=== PATIENT | female | born 1980 | race Caucasian/White ===

== ENCOUNTER 2022-06-22 10:25 | Observation (INO) | payer OTHER, SELFPAY ==
[2022-06-14 15:30] VITALS: BMI 30.3
--- NOTE | 2022-06-14 15:34 | PC.NURSE ---
Report to the Outpatient Waiting Room, entrance under the green pavilion located off [facility], at time 0600 on date 06/22/22. Planned Procedure Time: 0730. Time changes happen often and if your time is changed the preop area will call you the afternoon before. - You and your visitor will be asked to self-screen and do not enter if you have any COVID symptoms. - Only one visitor is requested with a max of two and NO children visitors are allowed at this time. - The patient visitor may be requested to leave or wait in car when not with patient due to distancing restrictions. - A mask is optional within the hospital at this time. Patients may have clear liquids (water, carbonated beverages, clear teas, apple juice) until 3 hours prior to surgery with a maximum of 20 ounces. - No food from midnight until time of surgery Take the following medications with a SIP of water the morning of surgery: NONE DO NOT STOP ANY OF YOUR OTHER PRESCRIPTION MEDICATIONS PRIOR TO SURGERY EXCEPT THE FOLLOWING Medications to discontinue per physician: VITAMINS/SUPPLEMENTS Date to take last dose: 06/17/22 Please no make-up, nail azeri, hairspray, perfume, deodorant, or body powder the day of surgery. No jewelry (including any body piercings) or valuables the day of surgery, leave them at home. Please take a shower or bath the night before, or the morning of, surgery with an antibacterial soap. Wear comfortable, loose fitting clothing. - Jewelry must be removed prior to entering the operating room. Rings and piercings that are not removed may be cut off. - The hospital will not accept responsibility for valuables. - Please leave all valuables, including medications, at home the day of surgery. If you are going home after surgery, a licensed regional owner operator truck driver must drive you home. - NO public transportation without another adult if you receive anesthesia. - We recommend that an adult stay with you for 24 hours following discharge. - We also recommend that you do not drive, make important decision, drink alcoholic beverages, or take any drugs that were not prescribed by your health care provider for at least 24 hours after your discharge time. Follow any additional instructions given to you from your surgeon. If you or anyone in your household have experienced Covid symptoms in the past week, please notify your surgeon or the nurse liaison at the phone number below for possible testing. Telephone instructions given to PT - MARI GUPTA and asked if any additional questions and then verbalized understanding. Patient advised to call surgeon office or pre surgery nurse liaison [phone] if any additional questions.
--- NOTE | 2022-06-21 16:37 | PM.IMHP ---
H&P: HPI History of Present Illness Date/Time: 06/21/22 16:37 Chief Complaint: Menorrhagia Narrative: patient with a long history of menorrhagia which has been resistant to medical management. She has tried Lysteda and no relief. She declines progesterone IUD or progesterone hormonal options. She also has fibroids. She has opted for definitive treatment with hysterectomy and bilateral salpingectomy at the same time. She declines endometrial ablation. She has had an endometrial biopsy which was benign. Review of Systems Review of Systems: All systems reviewed & are unremarkable except as noted in HPI and below Constitutional: Constitutional: Reports no additional constitutional complaints Eyes: Eyes: Reports no additional eye complaints Cardiovascular: Cardiovascular: Reports no additional cardiovascular complaints Respiratory: Respiratory: Reports no additional respiratory complaints Gastrointestinal: Gastrointestinal: Reports no additional gastrointestinal complaints Genitourinary: Genitourinary: Reports no additional female genitourinary complaints and Reports as per HPI Integumentary/Breasts: Skin/Breast: Reports system reviewed and no additional complaints, except as docu Neurologic: Reports system reviewed and no additional complaints, except as documented Psychiatric: Psychiatric: Reports no additional psychiatric complaints Hematologic/Lymphatic: Hematologic/Lymphatic: Reports no additional hematologic/lymphatic complaints PMFSH Past Medical History Medical History Migraine Surgical History Surgical History Previous section x 3 Family History Family History Mother Hypertension Family history of elevated blood lipids Family history of diabetes mellitus in first degree relative Grandparent Hypertension Family history of malignant neoplasm of breast Family history of coronary artery disease, Onset Age: 74 Social History Social History Smoking status: Never smoker Second hand tobacco smoke exposure: No Alcohol intake: never Substance use: never Substance use type: does not use Lack of Transportation: No Lack of Food: Never True Current Housing: I Have Housing Concerned About Future Housing: No Difficulty Paying Gas/Electric Bills: No Difficulty Paying for Meds: No Currently Unemployed: No Education: Bachelor's Degree Difficulty w/ Childcare or Family Care: No Living arrangements: with family Spiritual care concerns: No Meds Home Medications and Allergies Home Medications Medication Instructions Recorded Confirmed Type ascorbic acid (vitamin C) 250 mg 250 mg PO DAILY 12/22/20 06/22/22 History tablet cholecalciferol (vitamin D3) 25 25 mcg PO DAILY 12/22/20 06/22/22 History mcg (1,000 unit) capsule magnesium 200 mg tablet 200 mg PO DAILY 12/22/20 06/22/22 History biotin 5 mg capsule 5 mg PO DAILY 01/20/22 06/22/22 History montelukast 10 mg tablet 10 mg PO DAILY 01/20/22 06/22/22 History (Singulair) omega 5-ywq-dvz-fish oil 1,000 mg 1 cap PO DAILY 01/20/22 06/22/22 History (120 mg-180 mg) capsule (Fish Oil) tumeric 100 mg-esther 150 mg-olive 1 cap PO DAILY 01/20/22 06/22/22 History 50 mg-oreg 150 mg-caprylate capsule vitamin B complex (B 1 tablet PO DAILY 01/20/22 06/22/22 History Complex-Vitamin B12 tablet) scopolamine base 1 mg over 3 days 1 patch transdermal Q3D PRN nausea 05/31/22 06/22/22 Rx transdermal patch prevention #1 ea phentermine 30 mg capsule 30 mg PO DAILY 06/14/22 06/22/22 History Allergies Allergy/AdvReac Type Severity Reaction Status Date / Time No Known Allergies Allergy Unknown Verified 06/22/22 06:55 Exam Const: General: comfortable and no acute distre
[2022-06-22] VITALS (14 sets, daily range): BP systolic 98–171; BP diastolic 65–117; PULSE 40–66; RESP 11–20; TEMP 36.1–36.7; O2SAT 96–100
--- NOTE | 2022-06-22 06:58 | WPDANESEPPF ---
Anes - Initial Pre Proc Eval Procedure: Operation Date: 06/22/22 07:30 Proposed Procedures p Robotic Total Hysterectomy with Bilateral Salpingectomy - Larry Ball MD Date/Time: 06/22/22 06:58 Surgeon: Larry Ball MD Pre Op Diagnosis: symptomatic fibroid uterus Patient Data Age: 41 Gender: F Height: 1.68 m Weight: 85.3 kg Allergies Allergy/AdvReac Type Severity Reaction Status Date / Time No Known Allergies Allergy Unknown Verified 06/22/22 06:55 Home Medications Medication Instructions Recorded Confirmed Type ascorbic acid (vitamin C) 250 mg 250 mg PO DAILY 12/22/20 06/14/22 History tablet cholecalciferol (vitamin D3) 25 25 mcg PO DAILY 12/22/20 06/14/22 History mcg (1,000 unit) capsule magnesium 200 mg tablet 200 mg PO DAILY 12/22/20 06/14/22 History biotin 5 mg capsule 5 mg PO DAILY 01/20/22 06/14/22 History montelukast 10 mg tablet 10 mg PO DAILY 01/20/22 06/14/22 History (Singulair) omega 7-lhk-yqe-fish oil 1,000 mg 1 cap PO DAILY 01/20/22 06/14/22 History (120 mg-180 mg) capsule (Fish Oil) tumeric 100 mg-esther 150 mg-olive 1 cap PO DAILY 01/20/22 06/14/22 History 50 mg-oreg 150 mg-caprylate capsule vitamin B complex (B 1 tablet PO DAILY 01/20/22 06/14/22 History Complex-Vitamin B12 tablet) scopolamine base 1 mg over 3 days 1 patch transdermal Q3D PRN nausea 05/31/22 06/14/22 Rx transdermal patch prevention #1 ea phentermine 30 mg capsule 30 mg PO DAILY 06/14/22 06/14/22 History Patient hx anesthesia problems: none Family hx anesthesia problems: none Results Review: All pre-operative results and documents have been reviewed as part of the pre-operative evaluation. [facility] Past Medical History Medical History Migraine Surgical History Surgical History Previous section x 3 Family History Family History Mother Hypertension Family history of elevated blood lipids Family history of diabetes mellitus in first degree relative Grandparent Hypertension Family history of malignant neoplasm of breast Family history of coronary artery disease, Onset Age: 74 Social History Social History Smoking status: Never smoker Second hand tobacco smoke exposure: No Alcohol intake: never Substance use: never Substance use type: does not use Lack of Transportation: No Lack of Food: Never True Current Housing: I Have Housing Concerned About Future Housing: No Difficulty Paying Gas/Electric Bills: No Difficulty Paying for Meds: No Currently Unemployed: No Education: Bachelor's Degree Difficulty w/ Childcare or Family Care: No Living arrangements: with family Spiritual care concerns: No Anes - Eval Final PreProcedure Day of Procedure 06/22/22 06:58 Patient weight: obese Heart: regular rate and rhythm Lungs: clear to auscultation Airway: Mallampati scale class II Neurological: alert and oriented Last oral intake: >/= 8 hours ASA classification: II Emergent: no Anesthetic plan: proceed Anesthesia type and monitoring: general ETT and standard monitoring Results Review: All pre-operative results and documents have been reviewed as part of the pre-operative evaluation. Informed Consent: The patient's anesthetic plan and its attendant risks and benefits were discussed with the patient/family/POA. Questions were solicited and answers provided to the satisfaction of the patient/family/POA.
[2022-06-22] MEDS: ACETAMINOPHEN 500 MG TABLET 1000 MG PO (07:01)
[2022-06-22] MEDS: LACTATED RINGERS 1,000 ML 30 ML IV CONT ×3 (07:05→11:36)
[2022-06-22] MEDS: KETOROLAC 15 MG/ML VIAL (*BKC) IV PUSH (07:10)
--- NOTE | 2022-06-22 07:13 | WPDHPUPDATE1 ---
History and Physical Update Update Date/Time: 06/22/22 07:13 History and Physical has been reviewed, including an updated exam of the patient. There are NO changes in the patient's condition. Risks, benefits, and alternatives have been discussed and questions answered. Patient agrees to proceed with procedure.
[2022-06-22] MEDS: ceFAZolin 2 GM/D5W 50 ML 2 GM/50 ML BAG IVPB (07:25)
[2022-06-22] MEDS: BUPivacaine HCL 0.5% PF 30 ML VIAL INFILTRATE (07:59)
--- NOTE | 2022-06-22 10:22 | PM.OP ---
Procedure Note - Brief Procedure Note - Brief Date of procedure: 06/22/22 symptomatic fibroid uterus Post-op diagnosis: Same Procedure performed: 1. Robotic assisted total vaginal hysterectomy with bilateral salpingectomy. 2. Lysis of adhesions 3. Left ovarian cystectomy Surgeon: Larry Ball MD Estimated blood loss (mL): 50 IV fluids (mL): 1,600 Urine output (mL): 150 Drains: No Packing: No Pathology: Yes (1. uterus with cervix and right and left fallopian tubes 2. Left ovarian cyst wall) Complications: No immediate complications Condition: Stable Disposition: PACU
[2022-06-22] MEDS: fentaNYL CITRATE INJ (*CRX) 100 MCG/2 ML VIAL 25 MCG IV PUSH ×8 (10:45→12:06)
--- NOTE | 2022-06-22 10:56 | W.PM.PROC2 ---
Procedure Note - Detailed Date of Procedure 06/22/22 Pre-op Diagnosis symptomatic fibroid uterus Post-op Diagnosis Same Procedure Performed 1. Robotic assisted total laparoscopic vaginal hysterectomy with bilateral salpingectomy 2. Lysis of adhesions 3. Left ovarian cystectomy Surgeon Larry Ball MD Anesthesia General Description of Procedure After informed consent was obtained she was taken to the operating room and general endotracheal anesthesia was administered. She was placed in low lithotomy position. An exam under anesthesia was performed. Uterus mildly enlarged retroverted, no adnexal masses palpated. She was and prepped and draped in sterile fashion. Gill catheter placed in bladder. Attention was turned to the vagina speculum was inserted. Single-tooth tenaculum placed on anterior lip of the cervix the uterus sounded to 11 cm. The cervix was dilated to a 8 Yan dilator. A size 10 uterine manipulator was inserted and secured. A size 3.0 colp cup was secured in the vagina. Then attention was turned to the abdomen with new sterile gloves. .25% marcaine injected subcutaneously. An incision was made horizontal 2 cm above the umbilicus. The subcutaneous tissue was dissected with S retractors. Anterior and posterior fascia grasped with Betty clamp and incised. Peritoneum entered. No adhesions palpated. The fascia sutures were secured with 0 vicryl. The robotic hysson port and camera inserted into abdomen and secured to fascial sutures. A Pneumoperitoneum of 15 mm per mercury was obtained. She had large amount of adhesions of the omentum to the anterior abdomen below the umbilicus and there was also noted to be a small hernia at this site. A small incision was made approximately 6 cm lateral to the port on the left side of the port. A size 8mm robotic port was inserted under laparoscopic visualization into the abdomen on the left side. 5 cm lateral to this an incision was made. Under laparoscopic visualization another 8 mm robotic port was inserted. Attention was then turned to the right side of the abdomen and a robotic port was inserted under laparoscopic visualization. Superior and medial to this an incision was made an assistant to the dean port was inserted under laparoscopic visualization. At this time the pneumoperitoneum was released due to her having a bradycardic episode which was resolved and once it was resolved then the pneumoperitoneum was continued at 50 mm per mercury. The Trendelenburg was decreased. The intestinal organs were retracted upwaqrdl at this level. The robot was then attached to the robotic arms. The robotic instruments were inserted. Attention was turned to the surgery console. Attention was turned to the adhesions of the omentum to the anterior abdominal wall. The scar tissue was ligated with the vessel sealer. Hemostasis noted. No other adhesions noted. Attention was turned to the right round ligament which was ligated with the vessel sealer the anterior leaf of the broad ligament was dissected anteriorly to the vesicouterine peritoneum. The right side of the bladder was dissected from the lower uterine segment and upper cervix. The right fallopian tube was ligated from the broad ligament. The right ovarian ligament was ligated with the vessel sealer. The a posterior leaf of the broad ligament was further dissected. The ascending uterine vessels on the right were cauterized. The uterine vessels were ligated. Attention was turned to the left round ligament which was ligated and the anterior leaf of the broad ligament was dissected anteriorly. The rest of the vesicouterine peritoneum and scar tissue was dissected off of the uterus to the level below where the colp cup was palpated. Once the bladder was dissected below the colp cup then the posterior leaf of the broad ligament was further dissected. The left fallopian tube was ligated from the broad ligament. The ascending uterine vessels were ligated.
[2022-06-22] MEDS: GLYCOPYRROLATE INJ (*SP) 0.2 MG/ML VIAL IV PUSH (11:28)
--- NOTE | 2022-06-22 12:35 | PC.NURSE ---
PT arrived on unit via bed accompanied by spouse and taken to room 289. PT awake and alert but dozing and oriented to room and surrounding area. PT introductions made and plan of care discussed per post op advanced registered nurse surgery, pain management, daily care activities. PT and spouse both recipients of such instructions and no barriers to learning identified at this time. PT received such instructions per one to one discussion and demonstrations. PT verbalized understanding of such care.
[2022-06-22] MEDS: DEXTROSE 5%/0.45% SOD CHL 1,000 ML 125 ML IV CONT (13:06)
[2022-06-22] MEDS: KETOROLAC 30 MG/ML VIAL (*BKC) IV PUSH ×2 (13:11→20:26)
[2022-06-22] MEDS: ONDANSETRON INJ 4 MG/2 ML VIAL IV PUSH ×2 (13:12)
[2022-06-22] MEDS: SCOPOLAMINE 1.5 MG PATCH 1 MG TRANSDERM (13:12)
[2022-06-22] MEDS: oxyCODONE HCL (*CRX) 5 MG TAB IR PO (18:04)
[2022-06-22] MEDS: SIMETHICONE 80 MG TAB.CHEW PO (18:05)
[2022-06-23 00:33] VITALS: BP 115/58; PULSE 81; RESP 16; TEMP 37.3; O2SAT 100
[2022-06-23] MEDS: KETOROLAC 30 MG/ML VIAL (*BKC) IV PUSH (02:53)
[2022-06-23 02:58] VITALS: BP 104/64; PULSE 54; RESP 16; TEMP 37.4; O2SAT 100
[2022-06-23] MEDS: SIMETHICONE 80 MG TAB.CHEW PO ×2 (06:50→09:18)
[2022-06-23] MEDS: HYDROcodone/acetaminophen (*CRX) 10-325 MG TABLET 1 TAB PO ×2 (06:50→10:33)
[2022-06-23] MEDS: MONTELUKAST SODIUM 10 MG TABLET PO (06:51)
[2022-06-23 08:15] VITALS: BP 135/74; PULSE 59; RESP 18; TEMP 36.9; O2SAT 100
[2022-06-23] MEDS: IBUPROFEN 600 MG TABLET PO (09:18)
--- NOTE | 2022-06-23 09:32 | WPDANESPN ---
Anes - Prog Note Post-Op Date/Time: 06/23/22 09:32 Cardiovascular status: normal Respiratory status: normal Airway patency: baseline Mental status: baseline Post-Op hydration status: normal Vital Signs: Last Vital Signs Temp 36.9 C 06/23/22 08:15 Pulse 59 L 06/23/22 08:15 Resp 18 06/23/22 08:15 BP 135/74 06/23/22 08:15 Pulse Ox 100 06/23/22 08:15 O2 Del Method Room Air 06/22/22 19:20 O2 Flow Rate 8 06/22/22 11:15 Pain Score (VAS): 2 I/O: Intake & Output 06/22/22 06/23/22 06/23/22 23:59 07:59 15:59 Intake Total 700 1000 Output Total 500 Balance 200 1000 Post-procedural complaints: none Patient Feedback: Patient satisfied with anesthetic care.
--- NOTE | 2022-07-20 07:19 | PM.DS ---
DS: Admitting Diagnosis Discharge Date 06/23/22 Admitting Diagnosis Menorrhagia symptomatic fibroid uterus DS: Discharge Diagnosis Discharge Diagnosis Plan same DS: Summary Hospital Course Reason for hospitalization: planned hysterectomy Hospital Course: She was admitted for laparoscopic robotic hysterectomy. She had an uncomplicated robotic hysterectomy with bilateral salpingectomy, lysis of adhesions and cystectomy. She did well post operatively. By POD 1 she was tolerating regular diet, ambulating well, and had adequate pain control. She was discharged to home on POD1. Status at Discharge Functional status at discharge: independent ambulation Time Spent with Patient Time attestation: Total time spent providing and/or coordinating discharge services: Exam Const: General: healthy appearing and no acute distress HENMT: Head: normocephalic Face/Nose/Sinus: Normal external nose present Eyes: General: appearance normal, both eyes and all related structures Resp: Effort & Inspection: normal respiratory effort GI: Inspection: normal to inspection Rectal Exam: other (incisions healing well) Skin: General skin exam: normal color Extrem: General: normal to inspection Psych: Appearance: grossly normal DS: Data Data Completed and Pending Completed studies during hospitalization: Pending at discharge 06/22/22 09:55 Surgical [PTH] Routine Surgical [PTH] Routine Discharge Plan Discharge Attending physician on discharge: Larry Ball Consulting providers: Christophe Aguilar; Lui Jennings Discharging Clinician: Larry Ball Anticipated Discharge Date/Time: 06/23/22 10:02 Patient Disposition: Home, Self-Care Activity: may shower, no straining, no driving and pelvic rest Diet: regular Discharge Instructions: Remove the Scopolamine patch that was placed behind your ear in 72 hours or less. Wash your hands after touching. Patient Instructions: Laparoscopic Hysterectomy (DC) Stand Alone Forms: General Discharge Instructions Follow-up/Referrals: Larry Ball MD [Physician] - Keep Reg. Scheduled Appt. Discharge Medications: New ketorolac 10 mg tablet 10 mg PO Q6H PRN (Reason: pain) 4 Days Qty: 16 0RF hydrocodone-acetaminophen 5-325 mg Tablet 1 tablet PO Q3H PRN (Reason: Pain Rated 5 Or Less) Qty: 25 0RF Continued omega 8-teu-waf-fish oil [Fish Oil] 1,000 mg (120 mg-180 mg) capsule 1 cap PO DAILY vitamin B complex [B Complex-Vitamin B12] Tablet 1 tablet PO DAILY biotin 5 mg capsule 5 mg PO DAILY rksjfgv-jaml-vqhrk-oreg-capryl 100 mg-150 mg- 50 mg-150 mg capsule 1 cap PO DAILY montelukast [Singulair] 10 mg tablet 10 mg PO DAILY ascorbic acid (vitamin C) 250 mg tablet 250 mg PO DAILY cholecalciferol (vitamin D3) 25 mcg (1,000 unit) capsule 25 mcg PO DAILY magnesium 200 mg tablet 200 mg PO DAILY phentermine 30 mg Capsule 30 mg PO DAILY Rx Instructions: must administer 2 hours after breakfast Discontinued scopolamine base 1 mg over 3 days patch 3 day 1 patch transdermal Q3D PRN (Reason: nausea prevention) Qty: 1 0RF Rx Instructions: apply one day prior to surgery ketorolac 10 mg tablet 10 mg PO Q6H PRN (Reason: pain) 4 Days Qty: 16 0RF Date of admission: 06/22/22 10:25 Primary Care Provider: Cory,Luc Knapp Admitting Provider: Larry Ball Attending physician on admission: Larry Ball Condition: Stable
== END 2022-06-23 10:02 | disposition home or self-care (01) ==
LOC: ANHOB2 06-23 10:10 → ANH2MED 06-30 13:48
PROVIDERS: Admitting Provider Obstetrics & Gynecology; PCP Internal Medicine; Visit Provider Obstetrics & Gynecology
PROC: (CPT 58552; principal; 2022-06-22 07:30)
DX: D25.1 Intramural leiomyoma of uterus (principal); N73.6 Female pelvic peritoneal adhesions (postinfective); N83.202 Unspecified ovarian cyst, left side; N92.0 Excessive and frequent menstruation with regular cycle; E66.9 Obesity, unspecified; Z68.31 Body mass index [BMI] 31.0-31.9, adult; Z79.899 Other long term (current) drug therapy
CPT/HCPCS: 58552; 58662; S2900; 36415; 86850; 86900; 86901; 88305; 88307; A9270; J0131; J0690; J1885; J2250; J2405; J2704; J3010; J7120